=== PATIENT | female | born 1965 | race Caucasian/White ===

== ENCOUNTER 2016-12-09 02:21 | Emergency (ER) | payer OTHER ==
--- NOTE | 2016-12-09 03:09 | RADIOLOGY REPORT ---
EXAMINATION: CHEST 2 VIEWS CLINICAL INFORMATION: Cough, congestion. COMPARISON: None. TECHNIQUE: PA and lateral views of the chest were obtained. FINDINGS: The cardiac silhouette is not enlarged. The mediastinal and hilar contours are unremarkable. There are neither pleural effusions nor pneumothoraces. There are no consolidations. The osseous structures are unremarkable. IMPRESSION: No evidence for acute disease.
[2016-12-09 03:15] VITALS: BP 151/93
[2016-12-09] MEDS ORDERED: TESSALON PERLE100 M1 PO (04:05)
[2016-12-09] MEDS ORDERED: PREDNISONE20 M1 PO (04:05)
[2016-12-09] MEDS ORDERED: ZITHROMAX250 M2 PO (04:05)
--- NOTE | 2016-12-09 04:05 | ED INFLUENZA/URI COMPLAINT ---
History of Present Illness General Chief Complaint: Upper Respiratory Sx/Fever Stated Complaint: COUGH Source: patient, family, old records Exam Limitations: no limitations Vital Signs & Intake/Output Vital Signs & Intake/Output Vital Signs Date Time Temp Pulse Resp B/P Pulse O2 O2 Flow FiO2 Ox Delivery Rate 12/09 0339 95 Room Air 12/09 0315 95.2 103 16 151/93 95 Room Air Room Air Allergies Coded Allergies: No Known Allergies (12/09/16) Reconcile Medications Albuterol Sulfate (Proair Hfa) 90 MCG HFA.AER.AD 2-4 PUF INH Q4-6 PRN PRN shortness of breath Azithromycin (Zithromax) 250 MG TABLET 1 TAB PO DAILY bronchitis Benzonatate (Tessalon Perle) 100 MG CAPSULE 1 CAP PO TID PRN cough Prednisone 20 MG TABLET 1 TAB PO BID bronchitis Triage Note: 51YO FEMALE TO [facility] THEN TO 5 W/CO COUGH AND SOB X 4 D.LUNGS CTA. Triage Nurses Notes Reviewed? yes Onset: 4 days Duration: day(s):, continues in ED, waxing and waning Timing: recent history Severity: moderate Prior Episodes/Possible Cause: illness exposure No Modifying Factors: none Associated Symptoms: cough, nasal congestion, nasal drainage LMP (ages 10-50): unknown : No Patient currently breastfeeds: No HPI: 4 days prior to admission patient complains of nasal congestion nonproductive cough sore throat. She denies fever chills nausea vomiting diarrhea abdominal pain chest pain shortness breath headache dysuria rash bleeding. Past History Travel History Traveled to [place] past 21 day No Medical History Any Pertinent Medical History? none Surgical History Surgical History: none Psychosocial History What is your primary language [place] Tobacco Use: Never used Family History Hx Contributory? No Review of Systems Review of Systems Constitutional: Reports: see HPI, malaise. EENTM: Reports: see HPI, nasal congestion. Respiratory: Reports: see HPI, cough. Cardiovascular: Reports: no symptoms. GI: Reports: no symptoms. Genitourinary: Reports: no symptoms. Musculoskeletal: Reports: no symptoms. Skin: Reports: no symptoms. Neurological/Psychological: Reports: no symptoms. Hematologic/Endocrine: Reports: no symptoms. Immunologic/Allergic: Reports: no symptoms. All Other Systems: Reviewed and Negative Physical Exam Physical Exam General Appearance: well developed/nourished, alert, awake, anxious, mild distress, obese Head: atraumatic, normal appearance Eyes: Bilateral: normal appearance, PERRL, EOMI. Ears, Nose, Throat: normal ENT inspection, moist mucous membrane Neck: normal inspection, supple, full range of motion, trachea midline, no midline tenderness Respiratory: normal breath sounds, chest non-tender, no respiratory distress, quiet respiration, lungs clear Cardiovascular: regular rate/rhythm, normal peripheral pulses, norml femoral pulses equa Peripheral Pulses: 4+ carotid (R), 4+ carotid (L) Gastrointestinal: normal bowel sounds, soft, non-tender, no organomegaly Back: normal inspection, normal range of motion, no vertebral tenderness Extremities: normal inspection, normal capillary refill, normal range of motion, no edema Neurologic/Psych: no motor/sensory deficits, awake, alert, oriented x 3, normal gait, normal mood/affect Reflexes: 2+: bicep (R), bicep (L). Skin: intact, normal color, warm/dry Lymphatic: no anterior cervical rudy Core Measures Severe Sepsis Present: No Septic Shock Present: No Progress Differential Diagnosis: influenza, pneumonia, pharyngitis, sinusitis Plan of Care: Zithromax inhaler antitussive Diagnostic Imaging: Viewed by Me: Radiology Read. Discussed w/RAD: Radiology Read. CXR Impression: no acute abnormality, no infiltrates Initial ED EKG: none Departure Departure Time of Disposition: 402 Disposition: HOME OR SELF CARE Condition: Stable Clinical Impression Primary Impression: Bronchitis Referrals: CONOR SCHMIDT MD (PCP/Family) Departure Forms: Customer Survey General Discharge Information Prescriptions: Current Visit Scripts Azithromycin (Zithromax) 1 TAB PO DAILY #4 TAB Prednisone 1 TAB PO BID #10 TAB Benzonatate (Tessalon Perle) 1 CAP PO TID PRN cough #21 CAP Albuterol Sulfate (Proair Hfa) 2-4 PUF INH Q4-6 PRN PRN shortness of breath #1 INHAL
[2016-12-09] MEDS ORDERED: PROAIR HFA8.5 GM INH (04:07)
== END 2016-12-09 04:33 ==
LOC: ERH 02:21
DX: J40 Bronchitis, not specified as acute or chronic (principal)